=== PATIENT | female | born 1945 | race Caucasian/White ===

== ENCOUNTER 2018-12-06 09:41 | Day surgery (SDC) | payer MEDICARE ==
[~2018-12-06 09:41] MED LIST: KETOROLAC TROMETHAMINE 0.45% 4 DROP/0.4 ML DROPERETTE OS PRN; MIDAZOLAM 2 MG/2 ML INJ ONE
[2018-12-06] MEDS: TETRACAINE HCL 0.5% OPH SOLN 4 ML OS PRN ×3 (10:20→10:57)
[2018-12-06] MEDS: TROPICAMIDE 1% OPH SOLN 3 ML OS PRN ×3 (10:20→10:40)
[2018-12-06] MEDS: CYCLOPENTOLATE 0.2%/PHENYLEPHRINE 1% OPH SOLN 2 ML OS PRN ×3 (10:20→10:40)
[2018-12-06] MEDS: BESIFLOXACIN HCL 0.6% OPH SUSP 5 ML BOTTLE OS PRN ×5 (10:21→11:29)
[2018-12-06] MEDS ORDERED: LIDOCAINE 2% INJ (20 MG/ML) 20 ML MDV ONE (10:21)
[2018-12-06] MEDS ORDERED: BUPIVACAINE HCL/DEX-WATER/PF 15 MG/2 ML AMPULE ONE (10:22)
[2018-12-06] MEDS ORDERED: PROPOFOL INJ 200 MG/20 ML VIAL IV ONE (10:32)
[2018-12-06] MEDS ORDERED: TRYPAN BLUE 0.06 % OPH SOLN 0.5 ML DISP.SYRIN ONE (10:37)
[2018-12-06] MEDS: HYALURONIDASE INJ 150 UNIT/1 ML VIAL ONE ×2 (11:05→11:18)
[2018-12-06] MEDS: BUPIVACAINE HCL 0.75% INJ/PF (7.5 MG/1 ML) 10 ML SDV ONE ×2 (11:05→11:17)
[2018-12-06] MEDS: LIDOCAINE 2% INJ-PF (20 MG/ML) 10 ML AMPUL ONE ×2 (11:05→11:17)
[2018-12-06] MEDS: LIDOCAINE 1%/PHENYLEPHRINE 1.5% 1 ML VIAL ONE ×2 (11:10→11:16)
[2018-12-06] MEDS: EPINEPHRINE INJ/PF 1 MG/1 ML AMPULE ONE ×2 (11:10→11:16)
[2018-12-06] MEDS: CHONDR SU A NA/HYALUR INTRAOC KIT (SURGICARE) ONE ×2 (11:10→11:16)
[2018-12-06] MEDS ORDERED: CHONDR SU A NA/HYALUR SOD 0.5 ML DISP.SYRIN ONE (11:12)
[2018-12-06] MEDS: TOBRAMYCIN SULFATE/DEXAMETH OPH OINTMENT 3.5 GM ONE ×3 (11:15→11:29)
--- NOTE | 2018-12-06 22:47 | [facility] DISCHARGE SUMMARY E ---
[facility] Discharge Summary NAME: BREE ALEXANDRA AGE: 73Y ADMITTED: 12/06/2018 DISCHARGED: 12/06/2018 HOSPITAL COURSE: This is a 73-year-old female who underwent complex cataract extraction of her left eye with use of Trypan Blue dye. 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 She underwent surgery because she was unable to see the TV or road signs and unable to see small print. DISCHARGE INSTRUCTIONS: She should be on a regular diet. No bending at her waist, no heavy lifting. She should use her Besivance, Ketorolac, and Predforte at 3 p.m. and 8 p.m. and sleep with a rigid shield. I will see her for her 1 day postoperative tomorrow. DICTATING PHYSICIAN: LORENA HOGAN M.D. [id number] PHY#: [id number] ID: [id number] JOB#: [id number] ACCT: [id number] cc:LORENA HOGAN M.D. >
--- NOTE | 2018-12-07 01:07 | [facility] OPERATIVE REPORT E ---
[facility] Operative Report NAME: BREE ALEXANDRA AGE: 73Y DATE OF SURGERY: 12/06/2018 ROOM: PREOPERATIVE DIAGNOSIS: MATURE WHITE CATARACT OF THE LEFT EYE. 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 OPERATION: Complex cataract extraction with the use of Trypan Blue dye due to mature cataract with poor visualization of the anterior capsule. SURGEON: LORENA HOGAN M.D. ANESTHESIA: Topical with a retrobulbar block of 2% lidocaine, 0.75% Marcaine in 50 units of hyaluronidase. COMPLICATIONS: None. ESTIMATED BLOOD LOSS: Less than 2 mL. PROCEDURE: After obtaining appropriate consent, the patient left eye was prepped and draped in sterile fashion as well as the surgeon in a sterile manner, and the cataract surgery was started. First, the paracentesis blade was used to make a small side-port incision. Viscoelastic was used to inflate the anterior chamber. Next a 2.4 mm incision was made using a 2.4 mm keratome. At this point, the pupil was less than 4.5 mm and was very miotic. In order to complete the capsulorhexis, a Malyugin ring was inserted and found to be in excellent position to help stabilize the pupil. Following this, a continuous capsulorhexis was made using a cystitome and Utrata forceps. Following this, hydrodissection was carried out to make the lens fully loose and mobile, and it was rotated 90 degrees. Following this, a divide and conquer technique was used to phacoemulsify the lens with a CDE of approximately 28.7. The remaining cortex was removed with irrigation/aspiration. Provisc was instilled into the capsular bag to inflate the bag. A SN60WF lens of 20.5 diopters was placed. The remaining viscoelastic material was removed with irrigation/aspiration. After this the Malyugin ring was removed. Following this, the incision was found to be watertight. Besivance was instilled into the eye and a protective shield was placed over the eye. The patient returned to the postoperative recovery in stable condition. This was a complex case due to the fact that the Malyugin ring was used due to poor pupillary dilation of less than or equal to 4 mm. Prior to making the capsulorhexis Trypan Blue dye was used to stain the anterior capsule due to it being a mature white cataract with a poor red reflex. DICTATING PHYSICIAN: LORENA HOGAN M.D. [id number] PHY#: [id number] ID: [id number] JOB#: [id number] ACCT: [id number] cc:LORENA HOGAN M.D. > [facility]
== END 2018-12-06 12:15 | disposition home or self-care (01) ==
LOC: SC 09:41
PROVIDERS: ATTEND Internal Medicine
DX: H25.89 Other age-related cataract (principal); I10 Essential (primary) hypertension; E78.00 Pure hypercholesterolemia, unspecified; E03.9 Hypothyroidism, unspecified; Z79.899 Other long term (current) drug therapy; H25.811 Combined forms of age-related cataract, right eye; H40.013 Open angle with borderline findings, low risk, bilateral; H04.123 Dry eye syndrome of bilateral lacrimal glands
CPT/HCPCS: 66982; V2632; J2250; J3490 ×7; A9270; J0171; J2704; J3470; J2370; 142